=== PATIENT | female | born 1950 | race Caucasian/White ===

== ENCOUNTER → 2017-08-19 | Outpatient (CLI) | payer MEDICARE, OTHER ==
--- NOTE | 2017-08-19 14:55 | NM ---
EXAMINATION TYPE: NM bone scan whole body DATE OF EXAM: 08/19/2017 COMPARISON: NONE HISTORY: 66-year-old female with history of cervical cancer 45 years ago, fall one week ago, pain all over. Technique: Delayed whole-body scanning was performed following the injection of 23.0 mCi Tc 99m MDP. Images acquired 3 hours post injection. Anterior and posterior projection images were obtained. FINDINGS: There is degenerative tracer activity at the shoulders, right sternoclavicular joint, bilateral first rib ends, and bilateral first MTP joints. Additional degenerative activity is seen along the posteri or elements of the lower lumbar spine, particularly on the right. There is no suspicious distribution of tracer activity to suggest osseous metastatic disease. IMPRESSION: 1. No scintigraphic evidence of osseous metastatic disease. 2. Scattered mild degenerative tracer activity as above.
== END | disposition home or self-care (01) ==
LOC: RADNMMAIN 10:22
PROVIDERS: ATTEND Family Medicine
DX: M19.011 Primary osteoarthritis, right shoulder (principal); M19.042 Primary osteoarthritis, left hand; M19.041 Primary osteoarthritis, right hand; M47.816 Spondylosis without myelopathy or radiculopathy, lumbar region
CPT/HCPCS: 78306; A9503

== ENCOUNTER → 2017-09-05 | Outpatient (CLI) | payer MEDICARE, OTHER ==
--- NOTE | 2017-09-05 16:28 | BD ---
EXAMINATION TYPE: Axial Bone Density DATE OF EXAM: 09/05/2017 COMPARISON: 04/10/2004 CLINICAL HISTORY: 67-year-old female osteoarthritis Height: 62.2 IN Weight: 169 LBS FRAX RISK QUESTIONS: Secondary Osteoporosis: 3. Menopause before 45: YES AGE 34 RISK FACTORS HISTORY OF: Active: YES Postmenopausal woman: AGE 34 MEDICATIONS: Additional Medications: NONE EXAM MEASUREMENTS: Bone mineral densitometry was performed using the [employer] System. Bone mineral density as measured about the Lumbar spine is: ----- L1-L4(G/cm2): 1.015 T Score Values are as follows: ----- L2: -1.7 ----- L3: -1.8 ----- L4: -0.8 ----- L1-L4: -1.4 Bone mineral density has: Decreased -10.4% since study of: 04/10/2004 Bone mineral density about the R hip (g/cm2): 0.924 Bone mineral density about the L hip (g/cm2): 0.888 T Score values are as follows: -----R Neck: -0.8 -----L Neck: -1.1 -----R Total: -0.1 -----L Total: -0.4 Bone mineral density has: Decreased -3.3% since study of: 04/10/2004 IMPRESSION: Osteopenia (T Score between -2.5 and -1). There is slightly increased risk of fracture and the patient may be considered for treatment. Re-Screen 2-5 years. NOTE: T-SCORE=SD OF THE YOUNG ADULT MEAN.
== END | disposition home or self-care (01) ==
LOC: RADBDWWP 14:46
PROVIDERS: ATTEND Family Medicine
DX: M85.80 Other specified disorders of bone density and structure, unspecified site (principal)
CPT/HCPCS: 77080

== ENCOUNTER → 2018-06-24 | Outpatient (CLI) | payer MEDICARE, OTHER ==
--- NOTE | 2018-06-26 09:51 | MM ---
Reason for exam: screening (asymptomatic). Last mammogram was performed 2 years and 7 months ago. History: Patient is postmenopausal and has history of other cancer at age 31. Family history of breast cancer in paternal grandmother at age 40. Benign stereotactic core biopsy of the right breast, May 01, 2001. Benign core biopsy of the right breast, 1999. 2 benign excisional biopsies of the left breast, 1999. Benign excisional biopsy of the right breast, 1999. Physical Findings: A clinical breast exam by your physician is recommended on an annual basis and results should be correlated with mammographic findings. MG 3D Screening Mammo W/Cad Bilateral CC and MLO view(s) were taken. Prior study comparison: November 26, 2015, bilateral MG 3d screening mammo w/cad. July 12, 2013, bilateral MG diagnostic mammo w CAD CORWIN. There are scattered fibroglandular densities. There is chronic nodularity bilaterally. No significant changes when compared with prior studies. ASSESSMENT: Benign, BI-RAD 2 RECOMMENDATION: Routine screening mammogram of both breasts in 1 year.
== END | disposition home or self-care (01) ==
LOC: RADMAMWWP 11:13
PROVIDERS: ATTEND Family Medicine
DX: Z12.31 Encounter for screening mammogram for malignant neoplasm of breast (principal)
CPT/HCPCS: 77063; 77067

== ENCOUNTER → 2020-11-21 | Outpatient (CLI) | payer MEDICARE, OTHER ==
--- NOTE | 2020-11-24 11:54 | MM ---
Reason for exam: screening (asymptomatic). Last mammogram was performed 2 years and 5 months ago. History: Patient is postmenopausal and has history of other cancer at age 31. Family history of breast cancer in paternal grandmother at age 40. Benign stereotactic core biopsy of the right breast, May 01, 2001. Benign core biopsy of the right breast, 1999. 2 benign excisional biopsies of the left breast, 1999. Benign excisional biopsy of the right breast, 1999. Excisional biopsy of the right breast, 1966. Physical Findings: A clinical breast exam by your physician is recommended on an annual basis and results should be correlated with mammographic findings. MG 3D Screening Mammo W/Cad Bilateral CC and MLO view(s) were taken. Prior study comparison: June 24, 2018, bilateral MG 3d screening mammo w/cad. November 26, 2015, bilateral MG 3d screening mammo w/cad. There are scattered fibroglandular densities. Previous mammotome biopsy in the right breast. There is chronic nodularity in the left breast. There is no discrete abnormality. ASSESSMENT: Benign, BI-RAD 2 RECOMMENDATION: Routine screening mammogram of both breasts in 1 year.
== END | disposition home or self-care (01) ==
LOC: RADMAMWWP 07:33
PROVIDERS: ATTEND Family Medicine
DX: Z12.31 Encounter for screening mammogram for malignant neoplasm of breast (principal); Z80.3 Family history of malignant neoplasm of breast; Z78.0 Asymptomatic menopausal state
CPT/HCPCS: 77063; 77067

== ENCOUNTER → 2020-11-24 | Outpatient (CLI) | payer MEDICARE, OTHER ==
--- NOTE | 2020-11-24 19:23 | BD ---
EXAMINATION TYPE: Axial Bone Density DATE OF EXAM: 11/24/2020 COMPARISON: 09/05/2017 CLINICAL HISTORY: Postmenopausal screening Height: 62.2 IN Weight: 167 LBS FRAX RISK QUESTIONS: Secondary Osteoporosis: 3. Menopause before 45: PARTIAL HYST AGE 31 RISK FACTORS HISTORY OF: Active: YES Postmenopausal woman: PARTIAL HYST AGE 31 MEDICATIONS: How Long: Additional Medications: VIT D, CALCIUM,MULTI VIT, MAGNESIUM, BIOTIN, VIT E, ZINC EXAM MEASUREMENTS: Bone mineral densitometry was performed using the [employer] System. Bone mineral density as measured about the Lumbar spine is: ----- L1-L4(G/cm2): 0.979 T Score Values are as follows: ----- L2: -2.1 ----- L3: -1.6 ----- L4: -1.6 ----- L1-L4: -1.7 Bone mineral density has: Decreased -4.0% since study of: 09/05/2017 Bone mineral density about the R hip (g/cm2): 0.875 Bone mineral density about the L hip (g/cm2): 0.880 T Score values are as follows: -----R Neck: -1.2 -----L Neck: -1.1 -----R Total: 0.0 -----L Total: -0.6 Bone mineral density has: Decreased -0.8% since study of: 09/05/2017 IMPRESSION: Osteopenia (T Score between -2.5 and -1). There is slightly increased risk of fracture and the patient may be considered for treatment. Re-Screen 2-5 years. NOTE: T-SCORE=SD OF THE YOUNG ADULT MEAN.
== END | disposition home or self-care (01) ==
LOC: RADBDWWP 16:18
PROVIDERS: ATTEND Family Medicine
DX: Z13.820 Encounter for screening for osteoporosis (principal); M85.89 Other specified disorders of bone density and structure, multiple sites; Z78.0 Asymptomatic menopausal state
CPT/HCPCS: 77080

== ENCOUNTER → 2020-11-25 | Outpatient (CLI) | payer MEDICARE, OTHER ==
[2020-11-25 13:56] LABS: African American GFR (CKD) >90 (>60 ml/min/1.73 sqM); Blood Urea Nitrogen 19 mg/dL (7-17); Non-African American GFR(CKD) 87 (>60 ml/min/1.73 sqM)
--- NOTE | 2020-11-25 16:07 | CT ---
EXAMINATION TYPE: CT chest wo/w con DATE OF EXAM: 11/25/2020 COMPARISON: None HISTORY: Chest pain. COPD. CT DLP: 1169 mGycm, Automated exposure control for dose reduction was used. CONTRAST: Performed injected with 100 mL of Isovue M300. TECHNIQUE: Axial images were obtained at 5 mm thick sections. Reconstructed images are reviewed on [employer] computer in the coronal plane. FINDINGS: Portion of the thyroid visualized is normal. No suspicious lung nodules or focal infiltrates are present. Emphysematous changes are present. Some scarring medially at the right apex. No enlarged mediastinal or hilar adenopathy is evident. The ascending aorta diameter at the level o f the main pulmonary artery is 3.0 cm. The main pulmonary artery diameter at the bifurcation is 2.6 cm. Minimal coronary artery calcification is noted. Limited CT sections are obtained through the upper abdomen. Hepatic cysts likely present along the me dial left lobe liver. IMPRESSIONS: 1. Mild emphysematous changes.
== END | disposition home or self-care (01) ==
LOC: RADCTMAIN 13:20
PROVIDERS: ATTEND Family Medicine
DX: J43.9 Emphysema, unspecified (principal)
CPT/HCPCS: 82565; 84520; 71270; 36415; Q9967

== ENCOUNTER 2022-07-14 11:27 | Observation (INO) | payer MEDICARE, OTHER ==
[2022-07-14] MEDS ORDERED: NITROGLYCERIN OINT 1 INCH/GM PACKET TOPICAL STA (12:24)
[2022-07-14] MEDS: ASPIRIN 81 MG PO STA ×2 (13:11→13:14)
[2022-07-14 13:20] LABS: Basophils % (A) 0 %; Eosinophils # (A) 0.1 k/uL (0-0.7); Eosinophils % (A) 1 %; HCT 47.1 % (34.0-46.0); HGB 15.9 gm/dL (11.4-16.0); Lymphocytes # (A) 2.2 k/uL (1.0-4.8); Lymphocytes % (A) 24 %; MCH 28.7 pg (25.0-35.0); MCHC 33.7 g/dL (31.0-37.0); MCV 85.3 fL (80.0-100.0); Mean Platelet Volume 7.7; Monocytes # (A) 0.4 k/uL (0-1.0); Monocytes % (A) 4 %; Neutrophils # (A) 6.7 k/uL (1.3-7.7); Neutrophils % (A) 71 %; Platelet Count 201 k/uL (150-450); RBC 5.52 m/uL (3.80-5.40); RDW 12.7 % (11.5-15.5); WBC 9.5 k/uL (3.8-10.6)
--- NOTE | 2022-07-14 13:22 | ED ---
General Adult HPI - General Chief complaint: Chest Pain Stated complaint: SOB, chest pain, Time Seen by Provider: 07/14/22 12:00 Source: patient, RN notes reviewed, old records reviewed Mode of arrival: wheelchair Limitations: no limitations - History of Present Illness Initial comments: This is a 71-year-old female who presents emergency Department complaining of chest pain that radiates to her back. Patient states she short of breath per patient states this all occurred after she went for a walk this morning. Patient states the pain is like a pressure sensation in the front of her chest and radiates to her back per patient states she also became diaphoretic and had some nausea. Patient denies any diabetes high blood pressure high cholesterol. Patient denies family history of heart disease. Patient denies any swelling to her legs or calf tenderness. Patient states had one episode of this before a while back and it wasn't as bad as this episode today. Patient states she still feels a little short of breath but she is not currently experiencing any chest pain - Related Data Allergies Allergy/AdvReac Type Severity Reaction Status Date / Time egg Allergy Unknown Verified 07/14/22 11:42 Penicillins Allergy Unknown Verified 07/14/22 11:42 Review of Systems ROS Statement: Those systems with pertinent positive or pertinent negative responses have been documented in the HPI. ROS Other: All systems not noted in ROS Statement are negative. Past Medical History Past Medical History: COPD History of Any Multi-Drug Resistant Organisms: None Reported Past Surgical History: Hysterectomy Additional Past Surgical History / Comment(s): breast biopsy Past Psychological History: No Psychological Hx Reported Smoking Status: Never smoker Past Alcohol Use History: Daily Past Drug Use History: None Reported General Exam - General Exam Comments Initial Comments: GENERAL: Patient is well-developed and well-nourished. Patient is nontoxic and well- hydrated and is in mild distress. ENT: Neck is soft and supple. No significant lymphadenopathy is noted. Oropharynx is clear. Moist mucous membranes. Neck has full range of motion without eliciting any pain. EYES: The sclera were anicteric and conjunctiva were pink and moist. Extraocular movements were intact and pupils were equal round and reactive to light. Eyelids were unremarkable. PULMONARY: Unlabored respirations. Good breath sounds bilaterally. No audible rales rhonc hi or wheezing was noted. CARDIOVASCULAR: There is a regular rate and rhythm without any murmurs gallops or rubs. ABDOMEN: Soft and nontender with normal bowel sounds. SKIN: Skin is clear with no lesions or rashes and otherwise unremarkable. NEUROLOGIC: Patient is alert and oriented x3. Cranial nerves II through XII are grossly intact. Motor and sensory are also intact. Normal speech, volume and content. Symmetrical smile. MUSCULOSKELETAL: Normal extremities with adequate strength and full range of motion. LYMPHATICS: No significant lymphadenopathy is noted PSYCHIATRIC: Normal psychiatric evaluation. Limitations: no limitations Course Vital Signs 07/14/22 07/14/22 07/14/22 11:38 13:15 14:02 Temperature 98.0 F Pulse Rate 85 72 83 Respiratory 18 18 16 Rate Blood Pressure 144/84 150/77 122/72 O2 Sat by Pulse 98 97 95 Oximetry Medical Decision Making - Medical Decision Making EKG shows sinus rhythm at 82 bpm MS interval 273 QRS 7070 QT interval 371 QTC is 49. Patient's EKG shows no ST segment elevation or depression. Was pt. sent in by a medical professional or institution (, PA, PROFESSIONAL NURSING TUTOR, urgent c are, hospital, or long term...) When possible be specific @ -No Did you speak to anyone other than the patient for history (EMS, parent, family, police, friend...)? What history was obtained from this source @ -No Did you review nursing and triage notes (agree or disagree)? Why? @ -I reviewed and agree with nursing and triage notes Were old charts reviewed (outside hosp., previous admission, EMS record, old EKG, old radiological studies, urgent care reports/EKG's, long term records)? Report findings @ -I reviewed prior charts and lab work on this patient Differential Diagnosis (chest pain, altered mental status, abdominal pain women, abdominal pain men, vaginal bleeding, weakness, fever, dyspnea, syncope, headache, dizziness, GI bleed, back pain, seizure, CVA, palpatations, mental health, musculoskeletal)? @ -Differential Chest Pain: Stable Angina, Unstable Angina, STEMI, NSTEMI Aortic Dissection, Pneumothorax, Musculoskeletal, Esophageal Spasm GERD, Cholecystitis, Pancreatitis, Zoster, this is not meant to be an all-inclusive list. EKG interpreted by me (3pts min.). @ -As above X-rays interpreted by me (1pt min.). @ -Chest x-ray shows no acute abnormality CT interpreted by me (1pt min.). @ -None done U/S interpreted by me (1pt. min.). @ -None done What testing was considered but not performed or refused? (CT, X-rays, U/S, labs)? Why? @ -None What meds were considered but not given or refused? Why? @ -None Did you discuss the management of the patient with other professionals (professionals i.e. , PA, PROFESSIONAL NURSING TUTOR, lab, RT, psych nurse, renal social worker, paint roller winder, teacher, landcare officer, case loader operator)? Give summary @ -I spoke with Dr. Katz he agreed to admit the patient admitted the patient I wrote admitting orders Was smoking cessation discussed for >3mins.? @ -No Was critical care preformed (if so, how long)? @ -No Were there social determinants of health that impacted care today? How? (Homelessness, low income, unemployed, alcoholism, drug addiction, transportation, low edu. Level, literacy, decrease access to med. care, senior living, rehab)? @ -No Was there de-escalation of care discussed even if they declined (Discuss DNR or withdrawal of care, Hospice)? DNR status @ -No What co-morbidities impacted this encounter? (DM, HTN, Smoking, COPD, CAD, Cancer, CVA, ARF, Chemo, Hep., AIDS, mental health diagnosis, sleep apnea, morbid obesity)? @ -None Was patient admitted / discharged? Hospital course, mention meds given and route, prescriptions, significant lab abnormalities, going to OR and other p ertinent info. @ -I spoke with Dr. hale he agreed to admit the patient admitted the patient and I wrote admitting orders. Patient's lab work was normal x-rays were normal and she was chest pain-free at this time Undiagnosed new problem with uncertain prognosis? @ -No Drug Therapy requiring intensive monitoring for toxicity (Heparin, Nitro, Insulin, Cardizem)? @ -No Were any procedures done? @ -No Diagnosis/symptom? @ -Chest pain Acute, or Chronic, or Acute on Chronic? @ -Acute Uncomplicated (without systemic symptoms) or Complicated (systemic symptoms)? @ -Complicated Side effects of treatment? @ -No Exacerbation, Progression, or Severe Exacerbation? @ -No Poses a threat to life or bodily function? How? (Chest pain, [place], MA, pneumonia, PE, COPD, DKA, ARF, appy, cholecystitis, CVA, Diverticulitis, Homicidal, Suicidal, threat to staff... and all critical care pts) @ -Yes this Could lead to poor perfusion and end organ dysfunction - Lab Data Result diagrams: 07/14/22 12:50 07/14/22 12:50 Lab Results 07/14/22 07/14/22 07/14/22 Range/Units 12:50 12:50 12:50 WBC 9.5 (3.8-10.6) k/uL RBC 5.52 H (3.80-5.40) m/uL Hgb 15.9 (11.4-16.0) gm/dL Hct 47.1 H (34.0-46.0) % MCV 85.3 (80.0-100.0) fL MCH 28.7 (25.0-35.0) pg MCHC 33.7 (31.0-37.0) g/dL RDW 12.7 (11.5-15.5) % Plt Count 201 (150-450) k/uL MPV 7.7 Neutrophils % 71 % Lymphocytes % 24 % Monocytes % 4 % Eosinophils % 1 % Basophils % 0 % Neutrophils # 6.7 (1.3-7.7) k/uL Lymphocytes # 2.2 (1.0-4.8) k/uL Monocytes # 0.4 (0-1.0) k/uL Eosinophils # 0.1 (0-0.7) k/uL Basophils # 0.0 (0-0.2) k/uL PT 9.9 (9.0-12.0) sec INR 0.9 (<1.2) APTT 21.6 L (22.0-30.0) sec Sodium 139 (137-145) mmol/L Potassium 3.9 (3.5-5.1) mmol/L Chloride 100 (98-107) mmol/L Carbon Dioxide 28 (22-30) mmol/L Anion Gap 11 mmol/L BUN 23 H (7-17) mg/dL Creatinine 0.68 (0.52-1.04) mg/dL Est GFR (CKD-EPI)AfAm >90 (>60 ml/min/1.73 sqM) Est GFR (CKD-EPI)NonAf 88 (>60 ml/min/1.73 sqM) Glucose 97 (74-99) mg/dL Calcium 9.7 (8.4-10.2) mg/dL Magnesium 2.3 (1.6-2.3) mg/dL Total Bilirubin 0.6 (0.2-1.3) mg/dL AST 27 (14-36) U/L ALT 32 (4-34) U/L Alkaline Phosphatase 96 (38-126) U/L Troponin I (0.000-0.034) ng/mL Total Protein 7.5 (6.3-8.2) g/dL Albumin 4.8 (3.5-5.0) g/dL 07/14/22 Range/Units 12:50 WBC (3.8-10.6) k/uL RBC (3.80-5.40) m/uL Hgb (11.4-16.0) gm/dL Hct (34.0-46.0) % MCV (80.0-100.0) fL MCH (25.0-35.0) pg MCHC (31.0-37.0) g/dL RDW (11.5-15.5) % Plt Count (150-450) k/uL MPV Neutrophils % % Lymphocytes % % Monocytes % % Eosinophils % % Basophils % % Neutrophils # (1.3-7.7) k/uL Lymphocytes # (1.0-4.8) k/uL Monocytes # (0-1.0) k/uL Eosinophils # (0-0.7) k/uL Basophils # (0-0.2) k/uL PT (9.0-12.0) sec INR (<1.2) APTT (22.0-30.0) sec Sodium (137-145) mmol/L Potassium (3.5-5.1) mmol/L Chloride (98-107) mmol/L Carbon Dioxide (22-30) mmol/L Anion Gap mmol/L BUN (7-17) mg/dL Creatinine (0.52-1.04) mg/dL Est GFR (CKD-EPI)AfAm (>60 ml/min/1.73 sqM) Est GFR (CKD-EPI)NonAf (>60 ml/min/1.73 sqM) Glucose (74-99) mg/dL Calcium (8.4-10.2) mg/dL Magnesium (1.6-2.3) mg/dL Total Bilirubin (0.2-1.3) mg/dL AST (14-36) U/L ALT (4-34) U/L Alkaline Phosphatase (38-126) U/L Troponin I <0.012 (0.000-0.034) ng/mL Total Protein (6.3-8.2) g/dL Albumin (3.5-5.0) g/dL Disposition Clinical Impression: Chest pain Disposition: ADMITTED IP TO THIS HOSP Referrals: Mihai Acosta DO [Primary Care Provider] - 1-2 days Time of Disposition: 14:14
[2022-07-14 13:36] LABS: INR 0.9 (<1.2); Prothrombin Time 9.9 sec (9.0-12.0)
[2022-07-14 13:39] LABS: ALT 32 U/L (4-34); AST 27 U/L (14-36); African American GFR (CKD) >90 (>60 ml/min/1.73 sqM); Albumin 4.8 g/dL (3.5-5.0); Alkaline Phosphatase 96 U/L (38-126); Anion Gap 11 mmol/L; Blood Urea Nitrogen 23 mg/dL (7-17); Calcium 9.7 mg/dL (8.4-10.2); Carbon Dioxide 28 mmol/L (22-30); Chloride 100 mmol/L (98-107); Glucose 97 mg/dL (74-99); Magnesium 2.3 mg/dL (1.6-2.3); Non-African American GFR(CKD) 88 (>60 ml/min/1.73 sqM); Potassium 3.9 mmol/L (3.5-5.1); Sodium 139 mmol/L (137-145); Total Bilirubin 0.6 mg/dL (0.2-1.3); Total Protein 7.5 g/dL (6.3-8.2)
--- NOTE | 2022-07-14 13:45 | XR ---
EXAMINATION TYPE: XR chest 2V DATE OF EXAM: 07/14/2022 1:27 PM COMPARISON: Chest radiographs from 10/14/2011 TECHNIQUE: XR chest 2V Frontal and lateral views of the chest. CLINICAL INDICATION:Female, 71 years old with history of Chest Pain; FINDINGS: Lungs/Pleura: There is flattening of the diaphragm with increased lucency of the lungs. No evidence o f pneumothorax, pleural effusion or focal consolidation. Pulmonary vascularity: Unremarkable. Heart/mediastinum: Cardiomediastinal silhouette is unremarkable. Musculoskeletal: No acute osseous pathology. IMPRESSION: 1. No acute cardiopulmonary disease process. 2. COPD changes.
[2022-07-14 13:49] LABS: Partial Thromboplastin Time 21.6 sec (22.0-30.0)
[2022-07-14] MEDS ORDERED: NITROGLYCERIN SL TABS 0.4 MG TAB SUBLINGUAL PRN (14:14)
[2022-07-14] MEDS: NITROGLYCERIN OINT 1 INCH/GM PACKET TOPICAL SCH ×2 (18:21→23:56)
[2022-07-14] MEDS: ACETAMINOPHEN TAB 325 MG TAB PO PRN (22:58)
[2022-07-15] MEDS: NITROGLYCERIN OINT 1 INCH/GM PACKET TOPICAL SCH (07:31)
[2022-07-15] MEDS ORDERED: NITROGLYCERIN SL TABS 0.4 MG TAB SUBLINGUAL PRN (08:51)
[2022-07-15] MEDS ORDERED: ALPRAZolam 0.25 MG TAB PO PRN (08:51)
[2022-07-15] MEDS ORDERED: ALPRAZolam 0.5 MG TAB PO PRN (08:51)
[2022-07-15] MEDS ORDERED: ATORVASTATIN 80 MG TAB PO STA (08:51)
[2022-07-15] MEDS ORDERED: ASPIRIN 325 MG TAB PO STA (08:51)
[2022-07-15] MEDS ORDERED: ASPIRIN 81 MG PO SCH (09:00)
[2022-07-15] MEDS ORDERED: SODIUM CHLORIDE 0.9% 1,000 ML in EMPTY BAG 1 BAG IV SCH (09:00)
[2022-07-15] MEDS ORDERED: ASPIRIN 325 MG TAB PO SCH (09:00)
[2022-07-15] MEDS: ACETAMINOPHEN TAB 325 MG TAB PO PRN (09:07)
[2022-07-15 09:12] LABS: Chol/HDL Ratio 2.98 Ratio; LDL Cholesterol,Calculated 132.9 mg/dL (0.0-131.0)
--- NOTE | 2022-07-15 10:13 | P.CRDCN ---
History of Present Illness History of present illness: HISTORY OF PRESENT ILLNESS: This is a 71-year-old female with a past medical history significant for hyperlipidemia, COPD, and former nicotine dependence. Patient does not follow with a digital director. We have been asked to see the patient in consultation for chest pain. Patient examined at the bedside. Patient states that yesterday she walked approximately 2 miles and towards the end of her walk she became significantly short of breath. She states that it was a struggle to finish her walk and get home. She states that she got home and rested for a while and then started doing some light housework. She states that she went into the garage and brought in some bottled water to take into the fridge. She states afterwards she began having chest pain. She states that she sat down in the recliner to relax. She states that she could not get a deep breath. She states that she broke out into a cold sweat and was feeling nauseated. She states this lasted for proximal only 10 minutes and eventually eased up on its own. She states that she had an episode like this last year and went to [facility] had a stress test and an echocardiogram which were unremarkable to her knowledge. She reports that her sister had a bicuspid aortic valve and has underwent 2 aortic valve replacements. * EKG reveals sinus mechanism with no signs of acute ischemia. Early repolarization noted. * Chest xray COPD changes. No acute cardiopulmonary process. * Laboratory data: WBC 9.5. Hemoglobin 15.9. Platelet count 201. Sodium 139. Potassium 3.9. BUN 23. Creatinine 0.68. LDL 132. Troponin negative 3. * Current home cardiac medications include none REVIEW OF SYSTEMS: At the time of my exam: CONSTITUTIONAL: Denies fever or chills. HEENT: Denies blurred vision, vision changes, or eye pain. Denies hemoptysis CARDIOVASCULAR: Denies chest pain. Denies orthopnea. Denies PND. Denies palpitations RESPIRATORY: Denies shortness of breath. GASTROINTESTINAL: Denies abdominal pain. Denies nausea or vomiting. HEMATOLOGIC: Denies bleeding disorders. GENITOURINARY: Denies any blood in urine. SKIN: Denies pruitis. Denies rash. PHYSICAL EXAM: VITAL SIGNS: Reviewed. GENERAL: Well-developed in no acute distress. HEENT: Head is normocephalic. Pupils are equal, round. Sclerae anicteric. Mucous membranes of the mouth are moist. Neck supple. No JVD or thyromegaly LUNGS: Respirations even and unlabored. Lungs essentially clear to auscultation bilaterally. HEART: Regular rate and rhythm. S1 and S2 heard. ABDOMEN: Soft. Nondistended. Nontender. EXTREMITIES: Normal range of motion. No clubbing or cyanosis. Peripheral pulses intact. No lower extremity edema NEUROLOGIC: Awake and alert. Oriented x 3. ASSESSMENT: Chest pain, troponins negative 3 Hyperlipidemia, ASCVD risk 8.1% COPD Former nicotine dependence PLAN: An acute coronary event has been ruled out Begin patient on aspirin 81 mg daily and atorvastatin 20 mg at night Due to patient's symptoms, Dr. Neely recommending cardiac catheterization which patient is agreeable to Patient will undergo cardiac catheterization today with Dr. Cho Further recommendations pending patient's course Nurse practitioner note has been reviewed by physician. Signing provider agrees with the documented findings, assessment, and plan of care. Past Medical History Past Medical History: COPD History of Any Multi-Drug Resistant Organisms: None Reported Past Surgical History: Hysterectomy Additional Past Surgical History / Comment(s): breast biopsy, catract sx Past Anesthesia/Blood Transfusion Reactions: Previous Problems w/ Anesthesia Past Psychological History: No Psychological Hx Reported Smoking Status: Never smoker Past Alcohol Use History: Daily Past Drug Use History: None Reported Medications and Allergies Home Medications Medication Instructions Recorded Confirmed Type Fluticasone/Umeclidin/Vilanter 1 puff INHALATION RT-DAILY 07/14/22 07/14/22 History [Trelegy Ellipta 100-62.5-25] methylPREDNISolone [Medrol Dose See Taper PO DIRECTED 07/14/22 07/14/22 Hi story Pack] Allergies Allergy/AdvReac Type Severity Reaction Status Date / Time egg Allergy abdominal Verified 07/14/22 15:03 pain & hives Penicillins Allergy Rash/Hives/ Verified 07/14/22 15:03 COREY Physical Exam Vitals: Vital Signs Temp Pulse Pulse Resp BP BP Pulse Ox 07/15/22 07:12 97.8 F 73 16 105/70 96 07/15/22 00:28 97.7 F 80 17 105/70 94 L 07/14/22 19:01 98.0 F 85 16 124/73 94 L 07/14/22 18:36 20 07/14/22 18:28 84 18 128/86 93 L 07/14/22 17:23 97.9 F 85 16 135/79 96 07/14/22 15:46 98.4 F 78 17 134/85 92 L 07/14/22 14:02 83 16 122/72 95 07/14/22 13:15 72 18 150/77 97 07/14/22 11:38 98.0 F 85 18 144/84 98 Intake and Output 07/14/22 07/15/22 07/15/22 22:59 06:59 14:59 Intake Total 118 Balance 118 Intake: Oral 118 Other: # Voids 1 1 Weight 73.028 kg Results 07/14/22 12:50 07/14/22 12:50 Cardiac Enzymes 07/14/22 07/14/22 07/14/22 Range/Units 12:50 12:50 15:40 AST 27 (14-36) U/L Troponin I <0.012 <0.012 (0.000-0.034) ng/mL 07/14/22 Range/Units 19:48 AST (14-36) U/L Troponin I <0.012 (0.000-0.034) ng/mL Coagulation 07/14/22 Range/Units 12:50 PT 9.9 (9.0-12.0) sec APTT 21.6 L (22.0-30.0) sec CBC 07/14/22 Range/Units 12:50 WBC 9.5 (3.8-10.6) k/uL RBC 5.52 H (3.80-5.40) m/uL Hgb 15.9 (11.4-16.0) gm/dL Hct 47.1 H (34.0-46.0) % Plt Count 201 (150-450) k/uL Comprehensive Metabolic Panel 07/14/22 Range/Units 12:50 Sodium 139 (137-145) mmol/L Potassium 3.9 (3.5-5.1) mmol/L Chloride 100 (98-107) mmol/L Carbon Dioxide 28 (22-30) mmol/L BUN 23 H (7-17) mg/dL Creatinine 0.68 (0.52-1.04) mg/dL Glucose 97 (74-99) mg/dL Calcium 9.7 (8.4-10.2) mg/dL AST 27 (14-36) U/L ALT 32 (4-34) U/L Alkaline Phosphatase 96 (38-126) U/L Total Protein 7.5 (6.3-8.2) g/dL Albumin 4.8 (3.5-5.0) g/dL Current Medications Generic Name Dose Route Start Last Admin Trade Name Freq PRN Reason Stop Dose Admin Acetaminophen 650 mg 07/14/22 22:46 07/14/22 22:58 Acetaminophen Tab 325 Mg Tab PO 650 mg Q6HR PRN Administration Fever and/ or Pain Aspirin 325 mg 07/15/22 09:00 Aspirin 325 Mg Tab PO DAILY MAGALY Nitroglycerin 0.4 mg 07/14/22 14:14 Nitroglycerin Sl Tabs 0.4 Mg Tab SUBLINGUAL Q5M PRN Chest Pain Nitroglycerin 1 inch 07/14/22 18:00 07/15/22 07:31 Nitroglycerin Oint 1 Inch/Gm Packet TOPICAL Not Given Q6HR MAGALY Intake and Output 07/14/22 07/15/22 07/15/22 22:59 06:59 14:59 Intake Total 118 Balance 118 Intake: Oral 118 Other: # Voids 1 1 Weight 73.028 kg 07/14/22 12:50 07/14/22 12:50
--- NOTE | 2022-07-15 10:56 | P.HPIM ---
History of Present Illness H&P Date: 07/14/22 Chief Complaint: Chest pain Patient is a 71-year-old female with known history of COPD presents to ER with the complaints of chest pain. Patient states that she started having shortness of breath after finishing her morning walk. When she reached home she developed chest pain mainly mid retrosternal and associated with nausea. Patient had cold sweats followed by. Symptoms last about 10 minutes. Patient states that pain was radiating to her back. Denied any cough or sputum production. No leg swelling or calf tenderness. Patient also felt dizzy while in the ER. Patient is taking steroid course for the past 5 days due to rash. Chest x-ray showed no acute cardiopulmonary process. COPD changes. EKG showed sinus rhythm. Laboratory data showed WBC 9.4 hemoglobin 15.9 and platelets 201, sodium 139 potassium 3.9 chloride 100 bicarb is 28 BUN 23 and creatinine 0.68 and magnesium 2.3 troponin 3 negative. Review of Systems Constitutional: Patient denies any fever or chills . No generalized weakness or weight loss. Abdomen: Patient denied nausea vomiting and diarrhea and abdominal pain. Cardiovascular: Patient denies any chest pain or short of breath no palpitations. Respiratory: patient denied any cough is from production. No shortness of breath Neurologic: Patient denied any numbness or tingling headache. Musculoskeletal: Patient denies any complaints of joint swelling or deformity. Skin: Negative Psychiatric: Negative Endocrine: No heat or cold intolerance. No recent weight gain. Genitourinary: No dysuria or hematuria. All other 14 point ROS negative except the above Past Medical History Past Medical History: COPD History of Any Multi-Drug Resistant Organisms: None Reported Past Surgical History: Hysterectomy Additional Past Surgical History / Comment(s): breast biopsy, catract sx Past Anesthesia/Blood Transfusion Reactions: Previous Problems w/ Anesthesia Past Psychological History: No Psychological Hx Reported Smoking Status: Never smoker Past Alcohol Use History: Daily Past Drug Use History: None Reported Medications and Allergies Home Medications Medication Instructions Recorded Confirmed Type Fluticasone/Umeclidin/Vilanter 1 puff INHALATION RT-DAILY 07/14/22 07/14/22 History [Trelegy Ellipta 100-62.5-25] methylPREDNISolone [Medrol Dose See Taper PO DIRECTED 07/14/22 07/14/22 History Pack] Allergies Allergy/AdvReac Type Severity Reaction Status Date / Time egg Allergy abdominal Verified 07/14/22 15:03 pain & hives Penicillins Allergy Rash/Hives/ Verified 07/14/22 15:03 COREY Physical Exam Vitals: Vital Signs Temp Pulse Pulse Resp BP BP Pulse Ox 07/14/22 19:01 98.0 F 85 16 124/73 94 L 07/14/22 18:36 20 07/14/22 18:28 84 18 128/86 93 L 07/14/22 17:23 97.9 F 85 16 135/79 96 07/14/22 15:46 98.4 F 78 17 134/85 92 L 07/14/22 14:02 83 16 122/72 95 07/14/22 13:15 72 18 150/77 97 07/14/22 11:38 98.0 F 85 18 144/84 98 Intake and Output 07/14/22 07/14/22 07/14/22 06:59 14:59 22:59 Intake Total 118 Balance 118 Intake: Oral 118 Other: Weight 73.028 kg 73.028 kg PHYSICAL EXAMINATION: Patient is lying in the bed comfortably, no acute distress, awake alert and oriented.. HEENT: Normocephalic. Neck is supple. Pupils reactive. Nostrils clear. Oral cavity is moist. Neck reveals no JVD, carotid bruits, or thyromegaly. CHEST EXAMINATION: Trachea is central. Symmetrical expansion. Lung florian clear to auscultation and percussion. CARDIAC: Normal S1, S2 with no gallops. No murmurs ABDOMEN: Soft. Bowel sounds normal. No organomegaly. No abdominal bruits. Extremities: reveal no edema. No clubbing or cyanosis Neurologically awake, alert, oriented x3 with well-coordinated movements. No focal deficits noted Skin: No rash or skin lesions. Psychiatric: Coperative. Nonsuicidal Musculoskeletal: No joint swelling or deformity. Normal range of motion. Results CBC & Chem 7: 07/14/22 12:50 07/14/22 12:50 Labs: Abnormal Lab Results - Last 24 Hours (Table) 07/14/22 07/14/22 07/14/22 Range/Units 12:50 12:50 12:50 RBC 5.52 H (3.80-5.40) m/uL Hct 47.1 H (34.0-46.0) % APTT 21.6 L (22.0-30.0) sec BUN 23 H (7-17) mg/dL Thrombosis Risk Factor Assmnt - DVT/VTE Prophylaxis DVT/VTE Prophylaxis: Pharmacologic Prophylaxis ordered - Choose All That Apply Any of the Below Risk Factors Present?: Yes Each Factor Represents 1 point: Obesity (BMI >25) Other Risk Factors: Yes Each Risk Factor Represents 2 Points: Age 61-74 years Other congenital or acquired thrombophilia - If yes, enter type in comment: No Thrombosis Risk Factor Assessment Total Risk Factor Score: 3 Thrombosis Risk Factor Assessment Level: Moderate Risk Assessment and Plan Assessment: Possible cardiac chest pain. Ruled out ACS. Acute gastritis with currently being on steroids for the past 5 days. Hyperlipidemia COPD Previous history of smoking several years ago DVT prophylaxis Plan: Patient will be continued on telemetry monitoring. Serial EKG and troponin 3. Cardiology was consulted. Patient will be controlled on aspirin and ordered lipid panel. Continue the home medications and follow up closely. Time with Patient: Greater than 30
[2022-07-15] MEDS ORDERED: HEPARIN SODIUM 1,000 UN/ML (10ML VL) ONE (11:27)
[2022-07-15] MEDS ORDERED: MIDAZOLAM 2 MG/2 ML VIAL IVP ONE (11:30)
[2022-07-15] MEDS ORDERED: SODIUM CHLORIDE 0.9% 1,000 ML IV ONE (11:30)
[2022-07-15] MEDS ORDERED: LIDOCAINE 1% INJ 10MG/ML (5 ML VIAL-PF) SQ ONE (11:31)
[2022-07-15] MEDS ORDERED: VERAPAMIL SYRINGE (5 MG/10 ML) INTRAARTER ONE (11:32)
[2022-07-15] MEDS ORDERED: HEPARIN SODIUM 1,000 UN/ML (10ML VL) IVP ONE (11:34)
[2022-07-15] MEDS ORDERED: IOPAMIDOL-370 100ML BTL INJ ONE (11:41)
[2022-07-15] MEDS ORDERED: RX INFO: IV CONTRAST WAS GIVEN 1 EACH MISC MISCELLANE PRN (11:42)
--- NOTE | 2022-07-15 11:44 | P.PCN ---
Date of Procedure: 07/15/22 Operative Findings: CARDIAC CATHETERIZATION PERFORMING PHYSICIAN: Charles Cho MD, RPVI PROCEDURE PERFORMED: 1. Selective right and left coronary angiogram 2. Left heart catheterization 3. Ultrasound guided access of the right radial artery INDICATION: Unstable angina COMPLICATION: None APPROACH: Right radial artery LEVEL OF SEDATION: Moderate with a sedation length of 9 minutes PROCEDURE DESCRIPTION: After obtaining an informed consent, the patient was brought to cardiac lab analyst. Local anesthesia was performed using lidocaine subcutaneously. The right radial artery was cannulated using Seldinger technique, the guidewire passed easily, following that we advanced a 5-Cymraes sheath dilator assembly, the wire and dilator were removed and sheath was flushed. Following that, 2 mg of verapamil along with 3000 unit heparin were given. Selective right and left coronary angiogram using a 6-Cymraes JR4 and JL 3.5 catheters. Following that we did left heart catheterization using 6-Cymraes pigtail catheter. The procedure was completed there was no complication. SELECTIVE CORONARY ANGIOGRAM: The right coronary artery: Large-caliber vessel and nondominant vessel and appears to be angiographically normal Left main: Angiographically normal. Bifurcates into LCx and LAD The left circumflex: Large caliber vessel nondominant vessel. Its angiographically normal. Gives rises into an OM which appears to be normal The left anterior descending artery: Large-caliber vessel and appears to be angiographically normal. Gives rises into a diagonal branch which appears to be angiographically normal HEMODYNAMICS: LVEDP was 9 mmHg was no significant gradient across aortic valve CONCLUSION: 1. Normal coronary angiogram 2. Normal left-sided filling pressure POSTPROCEDURE MANAGEMENT: Medical treatment
[2022-07-15] MEDS ORDERED: SODIUM CHLORIDE 0.9% 1,000 ML IV SCH (11:45)
[2022-07-15 15:07] VITALS: TEMP 98.1
[2022-07-15 15:56] VITALS: BP 111/68; PULSE 83; RESP 16
[2022-07-15] MEDS ORDERED: ATORVASTATIN 20 MG TAB PO SCH (21:00)
[2022-07-16] MEDS ORDERED: HEPARIN SODIUM,PORCINE 10,000 UNIT in SODIUM CHLORIDE 0.9% 1,000 ML IRRIGATION PRN (07:00)
[2022-07-16] MEDS ORDERED: HEPARIN SODIUM,PORCINE 2,500 UNIT in SODIUM CHLORIDE 0.9% 250 ML IRRIGATION PRN (07:00)
--- NOTE | 2022-07-16 11:11 | CA ---
Transthoracic Echo Report Name: Marylou Montalvo Age: 71 Gender: F : 1950 Exam Date: 07/15/2022 13:51 Exam Location: [facility] Ht (in): 63 Wt (lb): 161 Ordering Physician: Ann-Marie Mejia Attending/Referring Phys: [id number], Jackie Artifacts Conservator Neela Flores RDCS Procedure CPT: Indications: LV function Cardiac Hx: Technical Quality: Fair Contrast 1: Total Dose (mL): Contrast 2: Total Dose (mL): MEASUREMENTS (Male / Female) Normal Values 2D ECHO LV Diastolic Diameter PLAX 4.7 cm 4.2 - 5.9 / 3.9 - 5.3 cm LV Systolic Diameter PLAX 2.7 cm IVS Diastolic Thickness 0.9 cm 0.6 - 1.0 / 0.6 - 0.9 cm LVPW Diastolic Thickness 1.1 cm 0.6 - 1.0 / 0.6 - 0.9 cm LV Relative Wall Thickness 0.4 RV Internal Dim ED PLAX 3.1 cm LA Systolic Diameter LX 3.2 cm 3.0 - 4.0 / 2.7 - 3.8 cm LV Diastolic Volume MOD 4C 86.1 cm??? LV Systolic Volume MOD 4C 44.4 cm??? LV Ejection Fraction MOD 4C 48.4 % LV Diastolic Length 4C 8.1 cm LV Systolic Length 4C 6.8 cm LV Diastolic Volume MOD 2C 44.1 cm??? LV Systolic Volume MOD 2C 19.8 cm??? LV Ejection Fraction MOD 2C 55.1 % LV Diastolic Length 2C 7.2 cm LV Systolic Length 2C 6.2 cm LA Volume 18.3 cm??? 18 - 58 / 22 - 52 cm??? M-MODE Aortic Root Diameter MM 3.3 cm MV E Point Septal Separation 0.7 cm AV Cusp Separation MM 2.1 cm DOPPLER AV Peak Velocity 124.9 cm/s AV Peak Gradient 6.2 mmHg MV Area PHT 3.2 cm??? Mitral E Point Velocity 67.5 cm/s Mitral A Point Velocity 89.0 cm/s Mitral E to A Ratio 0.8 MV Deceleration Time 239.2 ms MV E' Velocity 9.3 cm/s Mitral E to MV E' Ratio 7.3 FINDINGS Left Ventricle Left ventricular ejection fraction is estimated at 55-60 %. Left ventricular cavity size normal. Mildly increased posterior wall thickness. Right Ventricle Normal right ventricular size and function. Unable to estimate the right ventricular systolic pressure. Right Atrium Normal right atrial size. Left Atrium Normal left atrial size. Mitral Valve Structurally normal mitral valve. No mitral stenosis, regurgitation or prolapse. Aortic Valve Trileaflet aortic valve. No aortic valve stenosis or regurgitation. Tricuspid Valve Structurally normal tricuspid valve. No tricuspid stenosis, regurgitation or prolapse. Pulmonic Valve Structurally normal pulmonic valve. No pulmonic regurgitation. Pericardium Normal pericardium. No pericardial effusion. Aorta Normal size aortic root and proximal ascending aorta. CONCLUSIONS Preserved LV size and systolic function Previewed by: Dr. Ricky Neely MD (Electronically Signed) Final Date: 16 Jul 2022 11:10
== END 2022-07-15 17:15 | disposition home or self-care (01) ==
LOC: EC 11:27 → 6NMEDSUR 14:43
PROVIDERS: ADMIT Internal Medicine; ATTEND Internal Medicine
DX: R07.89 Other chest pain (principal); E78.5 Hyperlipidemia, unspecified; J44.9 Chronic obstructive pulmonary disease, unspecified; R61 Generalized hyperhidrosis; R11.0 Nausea; R42 Dizziness and giddiness; E66.9 Obesity, unspecified; Z68.28 Body mass index [BMI] 28.0-28.9, adult; Z79.51 Long term (current) use of inhaled steroids; Z79.899 Other long term (current) drug therapy; Z88.0 Allergy status to penicillin; Z91.012 Allergy to eggs; Z87.2 Personal history of diseases of the skin and subcutaneous tissue; Z87.891 Personal history of nicotine dependence; Z90.710 Acquired absence of both cervix and uterus; Z98.49 Cataract extraction status, unspecified eye; Z98.890 Other specified postprocedural states; Z82.49 Family history of ischemic heart disease and other diseases of the circulatory system
CPT/HCPCS: 99285; 36415; 93005; 93306; 93458; 76937; 80061; 80053; 83735; 84484; 85025; 85610; 85730; 83036; 71046; G0378 ×2; C1769; C1894; J2250; J2001; J1644; Q9967

== ENCOUNTER → 2022-08-11 | Outpatient (CLI) | payer MEDICARE, OTHER ==
[2022-08-11 13:54] LABS: African American GFR (CKD) >90 (>60 ml/min/1.73 sqM); Blood Urea Nitrogen 20 mg/dL (7-17); Non-African American GFR(CKD) 83 (>60 ml/min/1.73 sqM)
--- NOTE | 2022-08-11 19:27 | CT ---
EXAMINATION TYPE: CT chest w con DATE OF EXAM: 08/11/2022 COMPARISON: 11/25/2020 HISTORY: 71-year-old female J44.9, chest pain TECHNIQUE: Contiguous axial scanning of the chest after the administration of 100 mL of Isovue 300. Coronal/sagittal reconstructions performed. CT DLP: 294.8mGycm. Automatic exposure control utilized for a dose reduction. FINDINGS: Heart normal size without pericardial effusion. Mild LAD coronary calcifications are present. Aorta normal caliber with mild atherosclerotic arch calcifications and conventional arch vessel branc jimy anatomy. A prominent 8 mm right bronchial lymph node, axial image 31, appears unchanged when correlating with the prior noncontrast study. Otherwise, no thoracic lymphadenopathy. Moderate to advanced centrilobular emphysema. Biapical pleural parenchymal scarring. Mild diffuse bro nchial wall thickening no consolidation or pleural effusion. There may be mild circumferential wall thickening distal esophagus. Correlate for any symptoms of eso phagitis. Visualized upper abdomen shows a benign 1.2 cm cyst anterior left liver lobe and unchanged mild thick ening of the left adrenal gland. Moderate stool burden. Bones: No osseous destructive process. IMPRESSION: 1. COPD with moderately advanced emphysema and prominent biapical pleural parenchymal scarring. 2. Mild LAD coronary artery calcifications. 3. There may be mild circumferential wall thickening of the distal esophagus. Correlate for any sympt oms of a mild esophagitis.
== END | disposition home or self-care (01) ==
LOC: RADCTMAIN 13:08
PROVIDERS: ATTEND Family Medicine
DX: J43.9 Emphysema, unspecified (principal); G47.33 Obstructive sleep apnea (adult) (pediatric); I25.10 Atherosclerotic heart disease of native coronary artery without angina pectoris; K22.89 Other specified disease of esophagus
CPT/HCPCS: 82565; 84520; 71260; 36415; Q9967

== ENCOUNTER → 2022-09-22 | Outpatient (CLI) | payer MEDICARE, OTHER ==
--- NOTE | 2022-09-22 15:28 | P.SLEEP ---
History of Present Illness 1DATE: 09/22/2022 CONSULTATION/NEW PATIENT EVALUATION HISTORY OF PRESENT ILLNESS/SLEEP-WAKE EVALUATION: 72-year-old lady had been e valuated in the sleep center for possible obstructive sleep apnea hypopnea syndrome. SLEEP SCHEDULE: Usually sleep schedule from 11:30 PM to 6 AM 7 days a week. FALLING ASLEEP: Sometimes patient has difficulties to fall asleep. DURING SLEEP: Patient has loud snoring and multiple awakenings from sleep with nocturia. No history of hypnogogical hallucinations, sleep paralysis, or cataplexy. DURING THE DAY/WAKE STATE: Patient feels significant sleepiness during the day. Black sleepiness scale increased to 14, patient takes nap at 3 PM. PAST MEDICAL HISTORY: COPD, acid reflux, hyperlipidemia. PAST SURGICAL HISTORY: partial hysterectomy. MEDICATIONS: pantoprazole, trilegy, mirbetriq. SOCIAL HISTORY: positive for smoking for about 50 years 2 packs per day, quit 20 years ago, alcohol consumption occasional. FAMILY HISTORY: heart problems, lung problems, snoring, lung cancer, non- Hodgkin's lymphoma. REVIEW OF SYSTEMS: loud snoring, multiple awakenings from sleep, sleepiness during the day. No fevers. No double vision. No recent chest pain. No shortness of breath. No abdominal pain. No bleeding episodes. No blood in urine. No seizure episodes. PHYSICAL EXAMINATION: GENERAL: A pleasant patient without any distress. VITAL SIGNS: BP 128/72 , HR 78 , RR 16 , weight 159.8 pounds, height 5 foot 2 inches, body mass index 29.0 . HEENT: PERRLA, EOMI. Evaluation of oropharynx showed tongue protrudes midline, low position of soft palate Mallampati 2-3. NECK: Supple. No JVD. Thyroid is not palpable. 15 inches in circumference. LUNGS: Clear to percussion and to auscultation. Good air exchange. No wheezing or rhonchi. HEART: S1, S2 regular. No murmurs, gallops or rubs. ABDOMEN: Soft and nontender. Bowel sounds are present. No organomegaly appreciated. EXTREMITIES: No clubbing or cyanosis. TIME BUYER: Awake, alert, and oriented x3. Cranial nerves 2 to 7 intact. There is no fasciculation or atrophy noted. No focal deficits observed. ASSESSMENT: 1. Loud snoring, multiple awakenings from sleep, small oropharyngeal airspace with a wide pillars, sleepiness with Black Sleepiness Scale 14. Obstructive sleep apnea-hypopnea syndrome. 2. COPD with history of smoking in the past for about 100 pack years. 3. acid reflux. 4. hyperlipidemia. 5 Status post partial hysterectomy. PLAN: 1. Polysomnography for evaluation of patient's breathing during sleep. 2. CPAP/BiPAP titration if sleep study confirms obstructive sleep apnea- hypopnea syndrome. 3. Preferable position during sleep on the side. 4. No driving if patient feels any sleepiness. Patient is aware of civil and criminal liability for unsafe driving. 5. Sleep hygiene with regular sleep time for at least 7.5-8 hours. 6. Watching weight. Thank you very much for referring this patient for consultation. Sincerely, Bernard Reddy MD, PhD, FAASM. Diplomat of [employer], Sleep Medicine Board by [employer] Coating Inspector of [facility] [place] Past Medical History Past Medical History: COPD History of Any Multi-Drug Resistant Organisms: None Reported Past Surgical History: Hysterectomy Additional Past Surgical History / Comment(s): breast biopsy, catract sx Past Anesthesia/Blood Transfusion Reactions: Previous Problems w/ Anesthesia Past Psychological History: No Psychological Hx Reported Smoking Status: Never smoker Past Alcohol Use History: Daily Past Drug Use History: None Reported Medications and Allergies Home Medications Medication Instructions Recorded Confirmed Type Fluticasone/Umeclidin/Vilanter 1 puff INHALATION RT-DAILY 07/14/22 07/14/22 H istory [Trelegy Ellipta 100-62.5-25] Atorvastatin [Lipitor] 20 mg PO HS #30 tab 07/15/22 Rx Pantoprazole [Protonix] 40 mg PO AC-BRKFST #28 tab 07/15/22 Rx Allergies Allergy/AdvReac Type Severity Reaction Status Date / Time egg Allergy abdominal Verified 07/14/22 15:03 pain & hives Penicillins Allergy Rash/Hives/ Verified 07/14/22 15:03 COREY Sleep Note - Sleep Note Sleep Note: Temperature: Pulse Rate: Respiratory Rate: Blood Pressure: SpO2: Height: Weight: BMI: Neck Circumference:
== END ==
LOC: 3 N SLEEP 14:31
PROVIDERS: ATTEND Internal Medicine
DX: G47.33 Obstructive sleep apnea (adult) (pediatric) (principal); J44.9 Chronic obstructive pulmonary disease, unspecified; K21.9 Gastro-esophageal reflux disease without esophagitis; E78.5 Hyperlipidemia, unspecified; Z90.710 Acquired absence of both cervix and uterus; Z87.891 Personal history of nicotine dependence; Z88.0 Allergy status to penicillin; Z91.012 Allergy to eggs
CPT/HCPCS: 99211